=== PATIENT | female | born 1955 | race Caucasian/White ===

== ENCOUNTER 2020-07-13 07:36 | Outpatient (CLI) | payer MEDICARE, OTHER, SELFPAY ==
--- NOTE | 2020-07-13 08:57 | ECG_ITS ---
Measurements Intervals [place] Rate: 69 P: 97 DC: 170 QRS: -8 QRSD: 100 T: 93 QT: 385 QTc: 414 Interpretive Statements SINUS RHYTHM ANTEROSEPTAL INFARCT, AGE INDETERMINATE BORDERLINE ST-T WAVE ABNORMALITY- HIGH LATERAL LEADS BASELINE ARTIFACT- I, II, III, AVR, AVL, AVF ABNORMAL ECG Electronically Signed On 07-13-2020 9:34:59 CDT by Edinson Obando D.O.
[2020-07-13 09:32] LABS: Basophils Percent Auto 0.6 % (0.2-1.2); Eosinophils Absolute Auto 0.1 K/mm3 (0-0.3); Eosinophils Percent Auto 2.1 % (0-4.4); Hematocrit 41.3 % (37.0-47.0); Hemoglobin 13.6 g/dL (12.0-15.0); Immature Granulocyte Absolute 0.02 K/mm3 (0.00-0.031); Immature Granulocyte Percent A 0.4 % (0-0.5); Lymphocytes Absolute Auto 1.49 K/mm3 (0.9-3.2); Lymphocytes Percent Auto 28.3 % (18.3-44.2); Mean Corpuscular HGB Conc 32.9 g/dl (32-36); Mean Corpuscular Hemoglobin 30.8 pg (26-34); Mean Corpuscular Volume 93.7 fl (80-100); Mean Platelet Volume 9.7 fl (7.4-10.4); Monocytes Absolute Auto 0.5 K/mm3 (0.1-0.6); Monocytes Percent Auto 9.3 % (2.6-8.5); Neutrophils Absolute Auto 3.1 K/mm3 (1.3-6.7); Neutrophils Percent Auto 59.3 % (45.5-73.1); Platelet Count Result 294 k/mm3 (150-375); Red Blood Count 4.41 M/mm3 (4.2-5.4); Red Cell Distribution Width 13.1 % (11.5-14.5); White Blood Count 5.3 K/mm3 (4.5-10.0)
[2020-07-13 09:45] LABS: Alanine Aminotransferase 16 U/L (4-35); Albumin Level 4.3 g/dL (3.5-5.1); Alkaline Phosphatase 63 U/L (38-126); Anion Gap 5 mmol/L (8-16); Aspartate Amino Transferase 20 U/L (14-36); Bilirubin,Total 0.5 mg/dL (0.2-1.3); Blood Urea Nitrogen 18 mg/dL (7-17); Calcium 9.3 mg/dL (8.4-10.2); Carbon Dioxide 34 mmol/L (22-30); Chloride 99 mmol/L (98-107); Estimated Glomerular Filt Rate > 60; Glucose 101 mg/dL (65-105); Potassium 3.9 mmol/L (3.4-5.0); Sodium 138 mmol/L (137-145)
[2020-07-13 09:46] LABS: Partial Thromboplastin Time 27.2 SECONDS (22.3-36.8); Prothrombin Time 12.8 Seconds (11.1-14.7)
== END 2020-07-13 07:37 | disposition home or self-care (01) ==
LOC: ANHSURGERY 07:42
PROVIDERS: PCP Family Medicine; Visit Provider Urology
DX: N81.4 Uterovaginal prolapse, unspecified (principal); I48.0 Paroxysmal atrial fibrillation; Z01.818 Encounter for other preprocedural examination; R94.31 Abnormal electrocardiogram [ECG] [EKG]
CPT/HCPCS: 36415; 80053; 85025; 85610; 85730; 86850; 86900; 86901; 87086; 93005

== ENCOUNTER 2020-07-17 03:42 | Outpatient (CLI) | payer MEDICARE, OTHER, SELFPAY ==
[2020-07-17 17:45] LABS: SARS-CoV-2 RNA PCR Negative
== END 2020-07-17 03:43 | disposition home or self-care (01) ==
LOC: ANHCOVIDDT 03:42
PROVIDERS: PCP Family Medicine; Visit Provider Urology
DX: Z01.812 Encounter for preprocedural laboratory examination (principal); Z20.828 Contact with and (suspected) exposure to other viral communicable diseases
CPT/HCPCS: 87635; C9803; U0003

== ENCOUNTER 2020-07-20 01:05 | Day surgery (SDC) | payer MEDICARE, OTHER, SELFPAY ==
[2020-07-13 07:54] VITALS: BMI 29.4
[2020-07-13 09:00] VITALS: BP 128/75; PULSE 63; RESP 16; TEMP 36.7; O2SAT 99
--- NOTE | 2020-07-18 07:41 | PM.IMHP ---
H&P: HPI History of Present Illness Date/Time: 07/18/20 07:41 Chief complaint: uterine prolapse, stress incontinence Narrative: Josefa Beckford is a 65 year old female with POP and ADA Review of Systems Review of Systems: All systems reviewed & are unremarkable except as noted in HPI and below PMFSH Past Medical History Medical History (Updated 07/18/20 @ 07:44 by Cresencio Sanchez MD) Chronic anxiety Chronic depression Chronic low back pain without sciatica Fuchs' corneal dystrophy Family History Family History (Updated 03/27/19 @ 14:18 by DOCTOR UNKNOWN) Mother Diabetes mellitus, Onset Age: 81 Family history of cardiovascular disease Cerebrovascular accident, Onset Age: 81 Family history of chronic obstructive pulmonary disease Family history of atrial fibrillation Father Family history of suicide, Onset Age: 30 Grandparent Cerebrovascular accident, Onset Age: 72 Social History Social History Smoking packs per day: 2 Smoking cigarettes per day: 40.0 Years smoked: 15 Smoking pack-years: 30.00 Smoking status: Former smoker Tobacco type: cigarettes Smoking end date: 10/04/09 Alcohol intake: never Spiritual care concerns: No Meds Home Medications and Allergies Home Medications Medication Instructions Recorded Confirmed Type aspirin 325 mg tablet 325 mg PO DAILY 08/21/19 07/13/20 History magnesium oxide 400 mg PO DAILY 08/21/19 07/13/20 History prednisolone acetate 1 % eye 1 drop EACH EYE HS 08/21/19 07/13/20 History drops,suspension carvedilol 3.125 mg tablet 3.125 mg PO Q12H #120 tablet 02/26/20 07/13/20 Rx multivitamin,[id number] 1 tablet PO DAILY 07/13/20 07/13/20 History [Complete Multivitamin] Allergies Allergy/AdvReac Type Severity Reaction Status Date / Time Sulfa (Sulfonamide Allergy Unknown Hives Verified 07/13/20 07:58 Antibiotics) tetracycline Allergy Unknown Hives Verified 07/13/20 07:58 Exam Const: General: cooperative and healthy appearing HENMT: Head: normal to inspection General nose exam: Normal nares present Face and sinus: normal facial exam Mouth: Yes Normal oral and palatal mucosa present Eyes: General: appearance normal, both eyes and all related structures Neck: Neck: full ROM Resp: Effort & Inspection: normal respiratory effort and able to speak in complete sentences : Other: anterior +4, apex +4 Skin: General skin exam: normal color Extrem: General: normal to inspection Assessment and Plan Assessment and plan (1) Uterine prolapse: Code(s): N81.4 - Uterovaginal prolapse, unspecified Status: Acute Assessment and Plan: robotic sacral colpopexy (2) ADA (stress urinary incontinence, female): Code(s): N39.3 - Stress incontinence (female) (male) Status: Acute Assessment and Plan: urethral sling
[2020-07-20] VITALS (18 sets, daily range): BP systolic 110–137; BP diastolic 65–89; PULSE 50–110; RESP 12–20; TEMP 36.2–37.6; O2SAT 92–100
[2020-07-20] MEDS: LACTATED RINGERS 1,000 ML 30 ML IV CONT ×2 (06:58→10:33)
--- NOTE | 2020-07-20 07:12 | WPDANESEPPF ---
Anes - Initial Pre Proc Eval Procedure: Operation Date: 07/20/20 07:30 Proposed Procedures p Robotic Sacrocolpopexy, Possible Urethral Sling - Cresencio Sanchez MD s Robotic Assisted Laparoscopic Supracervical Hysterectomy, Bilateral Salpingo-Oophorectomy - Mike Mancini MD Date/Time: 07/20/20 07:12 Surgeon: Cresencio Sanchez MD Pre Op Diagnosis: uterine prolapse, stress incontinence Patient Data Age: 65 Gender: F Height: 1.71 m Weight: 86.6 kg Last Vital Signs Temp 36.2 C L 07/20/20 06:48 Pulse 82 07/20/20 06:48 Resp 20 07/20/20 06:48 BP 125/69 07/20/20 06:48 Pulse Ox 99 07/20/20 06:48 Allergies Allergy/AdvReac Type Severity Reaction Status Date / Time Sulfa (Sulfonamide Allergy Unknown Hives Verified 07/20/20 06:20 Antibiotics) tetracycline Allergy Unknown Hives Verified 07/20/20 06:20 Home Medications Medication Instructions Recorded Confirmed Type aspirin 325 mg tablet 325 mg PO DAILY 08/21/19 07/20/20 History magnesium oxide 400 mg PO DAILY 08/21/19 07/20/20 History prednisolone acetate 1 % eye 1 drop EACH EYE HS 08/21/19 07/20/20 History drops,suspension carvedilol 3.125 mg tablet 3.125 mg PO Q12H #120 tablet 02/26/20 07/20/20 Rx multivitamin,[id number]-lsnz-[id number] 1 tablet PO DAILY 07/13/20 07/20/20 History [Complete Multivitamin] ECG: Date of Service: 07/13/20 Procedure(s): CA 12 lead EKG Accession Number(s): [id number] cc: ~ Measurements Intervals [place] Rate: 69 P: 97 SC: 170 QRS: -8 QRSD: 100 T: 93 QT: 385 QTc: 414 Interpretive Statements SINUS RHYTHM ANTEROSEPTAL INFARCT, AGE INDETERMINATE BORDERLINE ST-T WAVE ABNORMALITY- HIGH LATERAL LEADS BASELINE ARTIFACT- I, II, III, AVR, AVL, AVF ABNORMAL ECG Electronically Signed On 07-13-2020 9:34:59 CDT by Edinson Obando D.O. Dictated By: Edinson Obando DO 07/13/20 0932 Patient hx anesthesia problems: none Family hx anesthesia problems: none PMFSH Past Medical History Medical History (Updated 07/20/20 @ 07:20 by Gee Parada MD) Chronic anxiety Chronic depression Chronic low back pain without sciatica Essential (primary) hypertension Fuchs' corneal dystrophy Overweight (BMI 25.0-29.9) Paroxysmal atrial fibrillation History of atrial fibrillation currently asymptomatic. She sees the loss prevention representative every 6 months. Uterine prolapse Family History Family History (Updated 03/27/19 @ 14:18 by DOCTOR UNKNOWN) Mother Diabetes mellitus, Onset Age: 81 Family history of cardiovascular disease Cerebrovascular accident, Onset Age: 81 Family history of chronic obstructive pulmonary disease Family history of atrial fibrillation Father Family history of suicide, Onset Age: 30 Grandparent Cerebrovascular accident, Onset Age: 72 Social History Social History Smoking packs per day: 2 Smoking cigarettes per day: 40.0 Years smoked: 15 Smoking pack-years: 30.00 Smoking status: Former smoker Tobacco type: cigarettes Smoking end date: 10/04/09 Alcohol intake: never Living arrangements: alone Spiritual care concerns: No Anes - Eval Final PreProcedure Day of Procedure 07/20/20 07:12 Patient weight: overweight Heart: regular rate and rhythm Lungs: clear to auscultation and normal air movement Airway: Mallampati scale class II Neurological: alert and oriented Last oral intake: >/= 8 hours ASA classification: III Emergent: no Anesthetic plan: proceed Anesthesia type and monitoring: general ETT Informed Consent: The patient's anesthetic plan and its attendant risks and benefits were discussed with the patient/family/POA. Questions were solicited a
--- NOTE | 2020-07-20 07:14 | PM.IMHP ---
H&P: HPI History of Present Illness Date/Time: 07/20/20 07:14 Chief complaint: uterine prolapse, stress incontinence Narrative: Josefa Beckford is a 65 year old female 003 female presents with longstanding history of pelvic pressure fullness of feeling as though her uterus is dropping out . Also a significant problem with stress urinary incontinence for which she has seen Dr. Sanchez. Presents today for trauma robotic hysterectomy with BSO to be followed by urologic procedure with Dr. Sanchez. Review of Systems Review of Systems: All systems reviewed & are unremarkable except as noted in HPI and below PMFSH Past Medical History Medical History Chronic anxiety Chronic depression Chronic low back pain without sciatica Fuchs' corneal dystrophy Family History Family History Mother Diabetes mellitus, Onset Age: 81 Family history of cardiovascular disease Cerebrovascular accident, Onset Age: 81 Family history of chronic obstructive pulmonary disease Family history of atrial fibrillation Father Family history of suicide, Onset Age: 30 Grandparent Cerebrovascular accident, Onset Age: 72 Social History Social History Smoking packs per day: 2 Smoking cigarettes per day: 40.0 Years smoked: 15 Smoking pack-years: 30.00 Smoking status: Former smoker Tobacco type: cigarettes Smoking end date: 10/04/09 Alcohol intake: never Living arrangements: alone Spiritual care concerns: No Meds Home Medications and Allergies Home Medications Medication Instructions Recorded Confirmed Type aspirin 325 mg tablet 325 mg PO DAILY 08/21/19 07/20/20 History magnesium oxide 400 mg PO DAILY 08/21/19 07/20/20 History prednisolone acetate 1 % eye 1 drop EACH EYE HS 08/21/19 07/20/20 History drops,suspension carvedilol 3.125 mg tablet 3.125 mg PO Q12H #120 tablet 02/26/20 07/20/20 Rx multivitamin,[id number]-[id number] 1 tablet PO DAILY 07/13/20 07/20/20 History [Complete Multivitamin] Allergies Allergy/AdvReac Type Severity Reaction Status Date / Time Sulfa (Sulfonamide Allergy Unknown Hives Verified 07/20/20 06:20 Antibiotics) tetracycline Allergy Unknown Hives Verified 07/20/20 06:20 Vital Signs Vital Signs - 24 hr 07/20/20 06:48 Temperature 36.2 C L Pulse Rate 82 Respiratory Rate 20 Blood Pressure 125/69 Pulse Oximetry 99 Exam Const: General: cooperative Resp: Effort & Inspection: normal respiratory effort Cardio: Rate: regular rate Rhythm: regular rhythm GI: Inspection: normal to inspection : External Female Exam: normal external appearance Speculum Exam - Vagina: normal appearance of the vagina Speculum Exam - Cervix: normal appearance of the cervix Bimanual exam- vagina & uterus: normal bimanual exam and Uterus displaced Bimanual Exam- Adnexa, other: normal adnexae Assessment and Plan Assessment and plan (1) Uterine prolapse: Code(s): N81.4 - Uterovaginal prolapse, unspecified Status: Acute Additional Plan 1. Proceed with robotic assisted supracervical hysterectomy with bilateral salpingo oophorectomy.
--- NOTE | 2020-07-20 07:17 | WPDHPUPDATE1 ---
History and Physical Update Update Date/Time: 07/20/20 07:17 History and Physical has been reviewed, including an updated exam of the patient. There are NO changes in the patient's condition. Risks, benefits, and alternatives have been discussed and questions answered. Patient agrees to proceed with procedure.
[2020-07-20] MEDS: ACETAMINOPHEN 500 MG TABLET 1000 MG PO (07:26)
--- NOTE | 2020-07-20 07:27 | SUR.PREOP ---
per Dr. Sanchez give patient PO tylenol pre-op but do not administer 15mg IV toradol
--- NOTE | 2020-07-20 07:30 | WPDHPUPDATE1 ---
History and Physical Update Update Date/Time: 07/20/20 07:30 History and Physical has been reviewed, including an updated exam of the patient. There are NO changes in the patient's condition. Risks, benefits, and alternatives have been discussed and questions answered. Patient agrees to proceed with procedure.
[2020-07-20] MEDS: ceFAZolin 2 GM/D5W 50 ML 2 GM/50 ML BAG IVPB (07:34)
[2020-07-20] MEDS: metroNIDAZOLE 500 MG/ISO 100ML 500 MG/100 ML BAG 100 MG IVPB ×2 (07:44→16:50)
[2020-07-20] MEDS: BUPIVACAINE/EPINEPHRINE 0.25% 50 ML VIAL 30 ML INFILTRATE (08:27)
--- NOTE | 2020-07-20 08:42 | PM.OP ---
Procedure Note - Brief Procedure Note - Brief Date of procedure: 07/20/20 Pre-op diagnosis: uterine prolapse, stress incontinence Post-op diagnosis: same Procedure performed: 1. Robotic assisted supracervical hysterectomy with bilateral salpingo oophorectomy. Description of procedure: Patient was prepped and draped usual manner for this procedure. Dr. Sanchez placed all the trocars under direct visualization. Once the instruments were placed the pelvis was evaluated and did reveal small uterus with normal tubes and ovaries there did appear also to be some minimal amount of endometriosis in the cul-de-sac. The infundibulopelvic ligaments were cauterized and cut to remove move the vasculature from the ovaries and then the round ligament was cauterized and cut. Bladder flap was dissected without difficulty. The posterior leaf of broad ligament was incised as well. Uterine vessels were skeletonized cauterized and cut. The cervix was then amputated from the uterus without difficulty. Uterus was placed in Endo-Catch bag. At this point Dr. Sanchezk into the room for his portion of the procedure Anesthesia: GETA Surgeon: Mike Mancini MD Estimated blood loss (mL): 10 Drains: No Packing: No Pathology: yes Complications: No immediate complications Condition: stable Disposition: PACU Findings: 1. Uterus small without abnormality. 2. Tubes and ovaries Without abnormality. 3. Cul-de-sac endometriosis.
--- NOTE | 2020-07-20 08:46 | PM.OP ---
Procedure Note - Brief Procedure Note - Brief Date of procedure: 07/22/20 Pre-op diagnosis: uterine prolapse, stress incontinence Surgeon: Mike Mancini MD
[2020-07-20] MEDS: KCL 20 MEQ/D5/0.45% SOD CHL 1,000 ML 100 ML IV CONT (11:59)
--- NOTE | 2020-07-20 14:03 | OBPPTRN ---
1138 Patient transferred to room #279 via bed. Oriented to unit, room, information board. Patient verbalizes understanding.
--- NOTE | 2020-07-20 14:10 | PM.PROC ---
Procedure Note - Detailed Date of procedure: 07/20/20 Pre-op diagnosis: uterine prolapse, stress incontinence Uterine prolapse Female perineal laxity Stress urinary incontinence Post-op diagnosis: same Procedure performed: Robotic assisted laparoscopic sacral colpopexy Perineoplasty Mid urethral sling Cystoscopy Description of procedure: Anesthesia: General She understood the risks of bleeding, infection, damage to surrounding organs, bowel injury, bowel obstruction, recurrence of prolapse, persistent or recurrent stress incontinence, mesh related complications including exposure and extrusion, diskitis, postoperative voiding dysfunction including incontinence and retention, hip and leg pain, dyspareunia, and she agrees to proceed. She was correctly identified and informed consent was obtained. She was brought to the operating room. She was given general anesthesia. She was placed in the dorsal lithotomy position. All pressure points were padded. She was given appropriate perioperative antibiotics. Time-out performed. I anesthetized the skin 3 fingerbreadths cephalad to the umbilicus. I incised the skin. I dissected down to locate the fascia. I grasped the fascia with Hang clamps. I entered the fascia sharply. I placed Vicryl sutures for later fascial closure. I placed a midline trocar. Under direct vision 2 additional trocars were placed on the right and left upper quadrant. She was placed in steep Trendelenburg and the robot was docked. Her configurator performed the portion of the procedure and left the specimen and a sac which was extracted. I then sat at the console. With the Sizer in the vagina I created a plane on the anterior and posterior vaginal wall. This was done for several cm taking great care not to injure the vagina, bladder, or rectum. I introduced the mesh into the abdomen. I sewed the anterior leaflet of mesh on the anterior vaginal wall and posterior leaf of the mesh on the posterior vaginal wall with several [place] sutures taking great care not to go through and through. I then reflected the colon laterally. I opened up the posterior peritoneum over the sacral promontory. I carried this into the cul-de-sac. I kept the ureters lateral. I freed up the edges. I located the anterior longitudinal ligament of the sacrum. I tensioned the mesh appropriately. I did a vaginal exam to ensure prolapse reduction without undue tension. I then sewed the proximal leaflet of mesh onto the ligament with 3 sutures of 2 0 [place]. Next the mass was meticulously retroperitonealized with a running 2 0 Monocryl suture. I allowed the colon to go back into its normal anatomic location. There is no signs of any impingement or stricturing. The abdomen was exited. Fascia was closed. Skin was closed with Monocryl and glue. She was repositioned and prepped for perineal surgery. I turned my attention towards the urethral sling. I marked out the thigh incisions. I anesthetize the skin and made those incisions. I anesthetized the anterior vaginal wall over the mid urethra. I made a 1 cm incision. I dissected out laterally taking great care not to injure the urethra or the vaginal wall. I next passed the helical trocars to 1st on the left and then on the right. This was done from the thigh incision towards the vaginal incision. The sling was connected to the trocars and brought out through the thigh incision. I tensioned the sling appropriately. I cut and removed the plastic sheaths. I then closed the incision with 2 0 Vicryl. She had quite a bit of perineal laxity. I malka out a arsen-shaped area of skin in the perineum. I anesthetized the skin. I removed this area of skin sharply. I then performed a perineoplasty with 0 Vicryl suture. I used a 2 0 Vicryl suture to close mucosa to mucosa. She had excellent perineal support without undue narrowing of the vagina. I then performed cystoscopy. The bladder is examined. There was
[2020-07-20] MEDS: MORPHINE SULFATE (*CRX) 2 MG/ML INJ IV PUSH (15:35)
[2020-07-20] MEDS: carvediloL 3.125 MG TABLET PO (18:42)
[2020-07-20] MEDS: DOCUSATE SODIUM 100 MG CAPSULE PO (18:43)
[2020-07-20] MEDS: KETOROLAC 15 MG/ML VIAL (*BKC) IV PUSH (18:43)
[2020-07-21] MEDS: metroNIDAZOLE 500 MG/ISO 100ML 500 MG/100 ML BAG 100 MG IVPB (00:27)
[2020-07-21] MEDS: KCL 20 MEQ/D5/0.45% SOD CHL 1,000 ML 100 ML IV CONT (01:54)
[2020-07-21] MEDS: KETOROLAC 15 MG/ML VIAL (*BKC) IV PUSH (04:32)
[2020-07-21 04:35] VITALS: BP 102/58; PULSE 63; RESP 16; TEMP 36.7; O2SAT 96
--- NOTE | 2020-07-21 07:09 | WPDANESPN ---
Anes - Prog Note Post-Op Date/Time: 07/21/20 07:09 Cardiovascular status: normal Respiratory status: normal Airway patency: baseline Mental status: baseline Post-Op hydration status: normal Vital Signs: Last Vital Signs Temp 36.7 C 07/21/20 04:35 Pulse 63 07/21/20 04:35 Resp 16 07/21/20 04:35 BP 102/58 L 07/21/20 04:35 Pulse Ox 96 07/21/20 04:35 Pain Score (VAS): 10/04 I/O: Intake & Output 07/20/20 07/20/20 07/21/20 15:59 23:59 07:59 Intake Total 610 1400 500 Output Total 205 400 550 Balance 405 1000 -50 Post-procedural complaints: none Patient Feedback: Patient satisfied with anesthetic care.
[2020-07-21 07:40] VITALS: BP 97/61; PULSE 72; RESP 18; TEMP 36.6; O2SAT 96
[2020-07-21 08:27] VITALS: PULSE 80
[2020-07-21] MEDS: carvediloL 3.125 MG TABLET PO (08:27)
[2020-07-21] MEDS: ENOXAPARIN 30 MG/0.3 ML SYRINGE SUB-Q (08:28)
[2020-07-21] MEDS: DOCUSATE SODIUM 100 MG CAPSULE PO (08:28)
--- NOTE | 2020-07-21 08:54 | WPDUROPN2 ---
Progress Note: A&P Assessment and Plan (1) Uterine prolapse: Code(s): N81.4 - Uterovaginal prolapse, unspecified Status: Acute Assessment and Plan: ok to discharge home today after last antibiotic dose and after she is able to urinate. Patient doing very well post operatively. She is tolerating diet and pain well. (2) ADA (stress urinary incontinence, female): Code(s): N39.3 - Stress incontinence (female) (male) Status: Acute Subjective Subjective Date/Time Seen: 07/21/20 08:54 POD #1 RALSC, Perineoplasty, mid urethral sling and cystoscopy Review of Systems Cardiovascular: Cardiovascular: Denies chest pain Respiratory: Respiratory: Reports no additional respiratory complaints Gastrointestinal: Gastrointestinal: Reports abdominal pain (at incisions only), Denies nausea and Denies vomiting Genitourinary: Genitourinary: Denies hematuria Exam Resp: Effort & Inspection: normal respiratory effort Cardio: Rate: regular rate GI: Inspection: incision (well approximated, no drainage, edema or erythema present.) GI Palp: Yes Soft to palpation and Yes Tenderness to palpation present (GI) Extrem: General: no edema Objective Data Vital Signs Vital Signs: Vital Signs - 24 hr 07/20/20 10:33 07/20/20 10:50 07/20/20 10:55 Temperature 97.4 F L Pulse Rate 72 81 91 Respiratory Rate 14 20 20 Blood Pressure 122/71 132/74 134/81 Pulse Oximetry 99 100 99 07/20/20 11:05 07/20/20 11:20 07/20/20 11:36 Temperature 97.8 F Pulse Rate 83 67 75 Respiratory Rate 12 17 16 Blood Pressure 112/86 115/78 110/74 Pulse Oximetry 97 92 98 07/20/20 11:45 07/20/20 12:00 07/20/20 12:30 Temperature Pulse Rate 89 82 50 L Respiratory Rate 16 16 16 Blood Pressure 119/72 114/82 130/77 Pulse Oximetry 98 98 98 07/20/20 13:00 07/20/20 14:00 07/20/20 15:00 Temperature 99.6 F Pulse Rate 76 109 H 86 Respiratory Rate 16 16 18 Blood Pressure 122/75 126/80 137/79 Pulse Oximetry 95 99 96 07/20/20 15:35 07/20/20 18:30 07/20/20 18:42 Temperature 98.0 F Pulse Rate 94 110 H 110 H Respiratory Rate 16 Blood Pressure 113/65 135/89 Pulse Oximetry 93 95 07/20/20 20:00 07/20/20 23:20 07/21/20 04:35 Temperature 98.9 F 98.3 F 98.1 F Pulse Rate 100 84 63 Respiratory Rate 16 16 16 Blood Pressure 113/65 115/72 102/58 L Pulse Oximetry 95 96 96 07/21/20 08:27 Temperature Pulse Rate 80 Respiratory Rate Blood Pressure Pulse Oximetry Intake/Output Intake/Output: Intake & Output 07/18/20 07/19/20 07/20/20 07/21/20 23:59 23:59 23:59 23:59 Intake Total 2060 500 Output Total 605 550 Balance 1455 -50 Meds/Results Medications: Active Medications Generic Name Dose Route Start Last Admin Trade Name Freq PRN Reason Stop Dose Admin Acetaminophen 650 mg 07/20/20 11:28 Acetaminophen 325 Mg Tablet PO Q4H PRN Mild Pain (1-3) or Fever Hydrocodone Bitart/Acetaminophen 1 tab 07/20/20 11:28 Hydrocodone/Acetaminophen (*Crx) 5-325 Mg Tablet PO Q4H PRN Pain Rated 4-5 Carvedilol 3.125 mg 07/20/20 18:00 07/21/20 08:27 Carvedilol 3.125 Mg Tablet PO 3.125 mg Q12H DAPHNE Administration Cephalexin HCl 500 mg 07/21/20 13:00 Cephalexin 500 Mg Capsule PO QID DAPHNE Diphenhydramine HCl 25 mg 07/20/20 11:28 Diphenhydramine Hcl Inj 50 Mg/Ml Vial IV PUSH Q6H PRN Itching Docusate Sodium 100 mg 07/20/20 11:28 07/21/20 08:28 Docusate Sodium 100 Mg Capsule PO 100 mg DAILY DAPHNE Administration Enoxaparin Sodium 30 mg 07/21/20 09:00 07/21/20 08:28 Enoxaparin 30 Mg/0.3 Ml Syringe SUB-Q 30 mg DAILY DAPHNE Administration Potassium Chloride/Dextrose/Sod Cl 1,000 mls @ 100 mls/hr 07/20/20 11:28 07/21/20 01:54 Kcl 20 Meq/D5/0.45% Sod Chl IV CONT 100 mls/hr .Q10H DAPHNE Administration Metronidazole 500 mg in 100 mls @ 100 mls/hr 07/20/20 16:00 07/21/20 00:27 Flagyl 500 Mg/Iso Soln 100 Ml IVPB 100 ml
[2020-07-21] MEDS: ACETAMINOPHEN 325 MG TABLET 650 MG PO (11:55)
== END 2020-07-21 13:33 | disposition home or self-care (01) ==
LOC: ANHSURGERY 08:31 → ANHOB2 11:30
PROVIDERS: Obstetrics & Gynecology; PCP Family Medicine; Visit Provider Urology
PROC: (CPT 57425; principal; 2020-07-20 07:30)
PROC: 0UT94ZZ Resection of Uterus, Percutaneous Endoscopic Approach (ICD-10-PCS; CPT 57425; 2020-07-20 07:30)
DX: N81.4 Uterovaginal prolapse, unspecified (principal); N39.3 Stress incontinence (female) (male); D25.9 Leiomyoma of uterus, unspecified; N83.8 Other noninflammatory disorders of ovary, fallopian tube and broad ligament; F41.8 Other specified anxiety disorders; H18.519 Endothelial corneal dystrophy, unspecified eye; I48.0 Paroxysmal atrial fibrillation; Z87.891 Personal history of nicotine dependence; Z79.82 Long term (current) use of aspirin
CPT/HCPCS: 57425; 57288; 58542; S2900; 88307; 99199; A9270; C1771; C1781; J0690; J1100; J1170; J1650; J1885; J2250; J2270; J2405; J2704; J2710; J3010; J3480; J7030; J7120

== ENCOUNTER → 2021-04-06 00:39 | Outpatient (CLI) | payer MEDICARE, OTHER, SELFPAY ==
[2021-04-06 17:38] LABS: SARS-CoV-2 RNA PCR Negative
== END ==
PROVIDERS: PCP Family Medicine; Visit Provider Internal Medicine Gastroenterology
DX: Z01.812 Encounter for preprocedural laboratory examination (principal); Z20.822 Contact with and (suspected) exposure to COVID-19
CPT/HCPCS: C9803; U0003; U0005

== ENCOUNTER 2021-04-09 01:06 | Day surgery (SDC) | payer MEDICARE, OTHER, SELFPAY ==
[2021-03-30 08:30] VITALS: BMI 31.1
[2021-04-09 10:08] VITALS: BP 110/56; PULSE 103; RESP 16; TEMP 36.2; O2SAT 99; BMI 30.4
[2021-04-09] MEDS: LACTATED RINGERS 1,000 ML 150 ML IV CONT (10:13)
--- NOTE | 2021-04-09 10:33 | WPDANESEPPF ---
Anes - Initial Pre Proc Eval Procedure: Operation Date: 04/09/21 11:00 Proposed Procedures p Screening Colonoscopy - Alan Orourke MD Date/Time: 04/09/21 10:33 Surgeon: Alan Orourke MD Pre Op Diagnosis: neoplasm screening Patient Data Age: 66 Gender: F Height: 1.7 m Weight: 88 kg Last Vital Signs Temp 36.2 C L 04/09/21 10:08 Pulse 103 H 04/09/21 10:08 Resp 16 04/09/21 10:08 BP 110/56 L 04/09/21 10:08 Pulse Ox 99 04/09/21 10:08 Allergies Allergy/AdvReac Type Severity Reaction Status Date / Time Sulfa (Sulfonamide Allergy Unknown Hives Verified 04/09/21 10:06 Antibiotics) tetracycline Allergy Unknown Hives Verified 04/09/21 10:06 Home Medications Medication Instructions Recorded Confirmed Type aspirin 325 mg tablet 325 mg PO DAILY 08/21/19 04/09/21 History magnesium oxide 400 mg PO DAILY 08/21/19 04/09/21 History prednisolone acetate 1 % eye 1 drop EACH EYE HS 08/21/19 04/09/21 History drops,suspension Complete Multivitamin 1 tablet PO DAILY 07/13/20 04/09/21 History alprazolam 0.25 mg tablet 0.25 mg PO TID PRN #30 tablet 08/06/20 04/09/21 Rx carvedilol 3.125 mg tablet 3.125 mg PO Q12H #120 tablet 10/26/20 04/09/21 Rx acetaminophen 650 mg PO Q6H PRN 03/30/21 04/09/21 History doxycycline hyclate 50 mg PO BID 03/30/21 04/09/21 History Patient hx anesthesia problems: none Family hx anesthesia problems: none PMFSH Past Medical History Medical History Adult BMI 30.0-30.9 kg/sq m Arthritis of carpometacarpal (CMC) joint of both thumbs BMI 29.0-29.9,adult Chronic anxiety Chronic depression Chronic low back pain without sciatica Chronic pain of both thumbs Colon cancer screening Essential (primary) hypertension Fuchs' corneal dystrophy Hypertension Overweight (BMI 25.0-29.9) Paroxysmal atrial fibrillation History of atrial fibrillation currently asymptomatic. She sees the insole bottom filler every 6 months. Uterine prolapse Webbing of toes Welcome to Medicare preventive visit Surgical History Surgical History H/O: hysterectomy History of heart surgery Family History Family History Mother Diabetes mellitus, Onset Age: 81 Family history of cardiovascular disease Cerebrovascular accident, Onset Age: 81 Family history of chronic obstructive pulmonary disease Family history of atrial fibrillation Father Family history of suicide, Onset Age: 30 Grandparent Cerebrovascular accident, Onset Age: 72 Social History Social History Smoking packs per day: 2 Smoking cigarettes per day: 40.0 Years smoked: 15 Smoking pack-years: 30.00 Smoking status: Former smoker Tobacco type: cigarettes Smoking end date: 10/04/09 Alcohol intake: never Substance use: never Living arrangements: alone Gender identity (if verbalized by the patient): Female Spiritual care concerns: No Anes - Eval Final PreProcedure Day of Procedure 04/09/21 10:33 Patient weight: obese Heart: regular rate and rhythm Lungs: clear to auscultation Airway: Mallampati scale class II Neurological: alert and oriented Last oral intake: >/= 8 hours ASA classification: III Emergent: no Anesthetic plan: proceed Anesthesia type and monitoring: general GIVS and standard monitoring Informed Consent: The patient's anesthetic plan and its attendant risks and benefits were discussed with the patient/family/POA. Questions were solicited and answers provided to the satisfaction of the patient/family/POA.
--- NOTE | 2021-04-09 12:01 | PM.HPGS ---
History of Present Illness History of Present Illness Consent: Risks, benefits, and alternatives have been discussed and questions answered. Patient agrees to proceed with procedure. Chief complaint: neoplasm screening Narrative: Josefa Beckford is a 66 year old female here for first screening colonoscopy Review of Systems Constitutional: Constitutional: Denies headache(s) and Denies weakness Eyes: Eyes: Denies blurry vision ENT: Reports Normal hearing present, Denies headache(s) and Denies neck pain Cardiovascular: Cardiovascular: Denies chest pain and Denies dyspnea Respiratory: Respiratory: Denies dyspnea Gastrointestinal: Gastrointestinal: Reports no additional gastrointestinal complaints Genitourinary: Genitourinary: Denies dysuria Musculoskeletal: Musculoskeletal: Denies neck pain Integumentary/Breasts: Skin/Breast: Denies dry skin Neurologic: Reports Normal hearing present, Denies headache(s) and Denies weakness Psychiatric: Psychiatric: Denies anxiety Endocrine: Endocrine: Denies change in body appearance Hematologic/Lymphatic: Hematologic/Lymphatic: Denies easy bleeding Allergic/Immunologic: Allergic/Immunologic: Denies urticaria PMF Past Medical History Medical History Adult BMI 30.0-30.9 kg/sq m Arthritis of carpometacarpal (CMC) joint of both thumbs BMI 29.0-29.9,adult Chronic anxiety Chronic depression Chronic low back pain without sciatica Chronic pain of both thumbs Colon cancer screening Essential (primary) hypertension Fuchs' corneal dystrophy Hypertension Overweight (BMI 25.0-29.9) Paroxysmal atrial fibrillation History of atrial fibrillation currently asymptomatic. She sees the toe puncher every 6 months. Uterine prolapse Webbing of toes Welcome to Medicare preventive visit Surgical History Surgical History H/O: hysterectomy History of heart surgery Family History Family History Mother Diabetes mellitus, Onset Age: 81 Family history of cardiovascular disease Cerebrovascular accident, Onset Age: 81 Family history of chronic obstructive pulmonary disease Family history of atrial fibrillation Father Family history of suicide, Onset Age: 30 Grandparent Cerebrovascular accident, Onset Age: 72 Social History Social History Smoking packs per day: 2 Smoking cigarettes per day: 40.0 Years smoked: 15 Smoking pack-years: 30.00 Smoking status: Former smoker Tobacco type: cigarettes Smoking end date: 10/04/09 Alcohol intake: never Substance use: never Living arrangements: alone Gender identity (if verbalized by the patient): Female Spiritual care concerns: No Meds Home Medications and Allergies Home Medications Medication Instructions Recorded Confirmed Type aspirin 325 mg tablet 325 mg PO DAILY 08/21/19 04/09/21 History magnesium oxide 400 mg PO DAILY 08/21/19 04/09/21 History prednisolone acetate 1 % eye 1 drop EACH EYE HS 08/21/19 04/09/21 History drops,suspension Complete Multivitamin 1 tablet PO DAILY 07/13/20 04/09/21 History alprazolam 0.25 mg tablet 0.25 mg PO TID PRN #30 tablet 08/06/20 04/09/21 Rx carvedilol 3.125 mg tablet 3.125 mg PO Q12H #120 tablet 10/26/20 04/09/21 Rx acetaminophen 650 mg PO Q6H PRN 03/30/21 04/09/21 History doxycycline hyclate 50 mg PO BID 03/30/21 04/09/21 History Allergies Allergy/AdvReac Type Severity Reaction Status Date / Time Sulfa (Sulfonamide Allergy Unknown Hives Verified 04/09/21 10:06 Antibiotics) tetracycline Allergy Unknown Hives Verified 04/09/21 10:06 Vital Signs Vital Signs - 24 hr 04/09/21 10:08 Temperature 97.2 F L Pulse Rate 103 H Respiratory Rate 16 Blood Pressure 110/56 L Pulse Oximetry 99 Exam Const:
[2021-04-09 12:20] VITALS: BP 91/57; PULSE 75; RESP 24; O2SAT 98
[2021-04-09 12:30] VITALS: BP 96/62; PULSE 59; RESP 19; O2SAT 100
[2021-04-09 12:40] VITALS: BP 105/70; PULSE 74; RESP 15; O2SAT 100
== END 2021-04-09 12:49 | disposition home or self-care (01) ==
PROVIDERS: PCP Family Medicine; Visit Provider Internal Medicine Gastroenterology
PROC: 0DJD8ZZ Inspection of Lower Intestinal Tract, Via Natural or Artificial Opening Endoscopic (ICD-10-PCS; CPT 45378; principal; 2021-04-09 11:00)
DX: Z12.11 Encounter for screening for malignant neoplasm of colon (principal); K57.30 Diverticulosis of large intestine without perforation or abscess without bleeding; I10 Essential (primary) hypertension; I48.0 Paroxysmal atrial fibrillation; M19.042 Primary osteoarthritis, left hand; M19.041 Primary osteoarthritis, right hand; M54.5 Low back pain; H18.519 Endothelial corneal dystrophy, unspecified eye; E66.3 Overweight; F32.9 Major depressive disorder, single episode, unspecified; F41.9 Anxiety disorder, unspecified; Q70.30 Webbed toes, unspecified foot; Z79.82 Long term (current) use of aspirin; Z90.710 Acquired absence of both cervix and uterus
CPT/HCPCS: G0121; J2704; J7120

== ENCOUNTER 2021-08-17 11:38 | Emergency (ER) | payer MEDICARE, OTHER, SELFPAY ==
[2021-08-17 11:50] VITALS: BP 156/86; PULSE 75; RESP 16; TEMP 37.1; O2SAT 97
--- NOTE | 2021-08-17 12:55 | ED.EXTPRO ---
HPI - Extremity Problem General Chief complaint: Extremity Problem,Nontraumatic Stated complaint: Rt Foot Pain Time Seen by Provider: 08/17/21 12:48 Source: patient and family Mode of arrival: ambulatory Limitations: no limitations History of Present Illness HPI Narrative: Josefa is a 66-year-old female who ambulated into the [facility]. Patient states she has had left heel and foot pain for greater than 1 month. Patient states it did get worse 1 week ago. Patient has been seen by Dr. Almonte who put her on meloxicam. Patient stopped taking the meloxicam due to stomach pain. Patient states she has been wearing hard soled shoes for comfort when walking. Related Data Home Medications Medication Instructions Recorded Confirmed aspirin 325 mg tablet 325 mg PO DAILY 08/21/19 07/15/21 magnesium oxide 400 mg PO DAILY 08/21/19 07/15/21 prednisolone acetate 1 % eye 1 drop EACH EYE HS 08/21/19 07/15/21 drops,suspension Complete Multivitamin 1 tablet PO DAILY 07/13/20 07/15/21 acetaminophen 650 mg PO Q6H PRN 03/30/21 07/15/21 doxycycline hyclate 50 mg capsule 50 mg PO DAILY 07/15/21 07/15/21 Allergies Allergy/AdvReac Type Severity Reaction Status Date / Time Sulfa (Sulfonamide Allergy Unknown Hives Verified 04/09/21 10:06 Antibiotics) tetracycline Allergy Unknown Hives Verified 04/09/21 10:06 Review of Systems Review of Systems: CONSTITUTIONAL: Denies body aches, fever, chills, or sweats. EYES: Denies visual changes, redness, or discharge. ENT: Denies rhinorrhea, congestion, sore throat, or otalgia. CARDIOVASCULAR: Denies chest pain, palpitations, or edema. RESPIRATORY: Denies cough or dyspnea. GASTROINTESTINAL: Denies abdominal pain, nausea, vomiting, or diarrhea. GENITOURINARY: Denies dysuria or hematuria. SKIN: Denies rash, itching, or wounds. MUSCULOSKELETAL: Denies back pain, + left foot pain. NEUROLOGIC: Denies headache, numbness, tingling, or weakness. PSYCH: Denies depression or anxiety. All systems reviewed & are unremarkable except as noted in HPI and below PMFSH Past Medical History Medical History Abnormal fasting glucose Adult BMI 30.0-30.9 kg/sq m Arthritis of carpometacarpal (CMC) joint of both thumbs BMI 29.0-29.9,adult BMI 31.0-31.9,adult Breast cancer screening by mammogram Mammogram negative on 07/01/2021 Chronic anxiety Chronic depression Chronic low back pain without sciatica Chronic pain of both thumbs Colon cancer screening normal colonoscopy with diverticula on 04/09/2021, recheck in 10 years Essential (primary) hypertension Fuchs' corneal dystrophy Hypertension Overweight (BMI 25.0-29.9) Pain in left hand Pain in right hand Paroxysmal atrial fibrillation History of atrial fibrillation currently asymptomatic. She sees the application internship every 6 months. Uterine prolapse Webbing of toes Welcome to Medicare preventive visit (~2006) Surgical History Surgical History H/O: hysterectomy History of heart surgery Family History Family History Mother Diabetes mellitus, Onset Age: 81 Family history of cardiovascular disease Cerebrovascular accident, Onset Age: 81 Family history of chronic obstructive pulmonary disease Family history of atrial fibrillation Father Family history of suicide, Onset Age: 30 Grandparent Cerebrovascular accident, Onset Age: 72 Social History Social History Smoking packs per day: 2 Smoking cigarettes per day: 40.0 Years smoked: 15 Smoking pack-years: 30.00 Smoking status: Former smoker Tobacco type: cigarettes Smoking end date: 10/04/09 Alcohol intake: never Substance use: never Gender identity (if verbalized by the patient): Female Spiritual care concerns: No Comments At time of signature, I have reviewed and agree with n
== END 2021-08-17 13:04 | disposition home or self-care (01) ==
PROVIDERS: Emergency Provider Nurse Practitioner Family; PCP Family Medicine
DX: M79.671 Pain in right foot (principal); I10 Essential (primary) hypertension; H18.519 Endothelial corneal dystrophy, unspecified eye; M18.9 Osteoarthritis of first carpometacarpal joint, unspecified; Z79.82 Long term (current) use of aspirin; Z87.891 Personal history of nicotine dependence
CPT/HCPCS: 99212; G0463

== ENCOUNTER 2021-08-26 15:15 | Outpatient (CLI) | payer MEDICARE, OTHER, SELFPAY ==
[2021-08-26 16:18] LABS: Rheumatoid Factor < 8.6 IU/ML (<12)
[2021-08-26 16:20] LABS: CRP < 0.5 mg/dL (<1.0)
[2021-08-26 16:54] LABS: Erythrocyte Sedimentation Rate 11 mm/hr (0-20)
[2021-08-31 22:59] LABS: HLA B27 Negative (Negative)
== END 2021-08-26 15:16 | disposition home or self-care (01) ==
PROVIDERS: PCP Family Medicine; Visit Provider Podiatrist Foot & Ankle Surgery
DX: M06.9 Rheumatoid arthritis, unspecified (principal); M45.9 Ankylosing spondylitis of unspecified sites in spine; M25.579 Pain in unspecified ankle and joints of unspecified foot; Z51.81 Encounter for therapeutic drug level monitoring; Z79.899 Other long term (current) drug therapy
CPT/HCPCS: 36415; 85652; 86038; 86140; 86430; 86812

== ENCOUNTER 2021-12-02 10:05 | Outpatient (CLI) | payer MEDICARE, OTHER, SELFPAY ==
--- NOTE | ~2021-12-02 | MR_ITS ---
EXAMINATION: MR ankle RT wo con DATE: 12/02/2021 10:47 INDICATION: Peroneus longus rupture, right ankle. TECHNIQUE: Magnetic resonance imaging (MRI) of the right ankle was performed without intravenous cont rast. Sequences included sagittal PD-weighted FS FSE, sagittal PD-weighted FSE, coronal PD-weighted F S FSE, coronal PD-weighted FSE, axial PD-weighted FS FSE, and axial PD-weighted FSE. COMPARISON: None. FINDINGS: Medial ankle ligaments: There are changes of prior sprain of the superficial component of deltoid ligament characterized by i ncreased signal intensity. The deep component of the deltoid ligament is normal. Lateral ankle ligaments: Anterior talofibular ligament, calcaneofibular ligament, posterior talofibular ligament, and anterior and posterior tibiofibular ligaments are normal. Tendons: The anterior and medial ankle tendons and Achilles tendon are normal. There is a complete tear of per oneus longus tendon distal to the lateral malleolus. The tendon gap is approximately 6 cm. There is a longitudinal split tear of peroneus brevis tendon. There is moderate peroneus brevis tendinopathy. T here is common peroneal tenosynovitis. Plantar fascia: There is thickening and increased signal in middle band of plantar fascia, consistent with fasciitis. Bones/other: Bone alignment is normal. There is edema-like marrow signal intensity in cuboid at the tunnel, likely stress reaction. There is mild osteoarthritis of many of the midfoot joints. Fluid: There is a 10 x 3 mm ganglion cyst dorsal to talonavicular joint. There is a ganglion cyst in sinus t arsi that extends medially to abut the skin measuring 3.9 x 1.5 cm. IMPRESSION: 1. Complete tear of peroneus longus tendon with 6 cm gap. 2. Longitudinal split tear of peroneus brevis tendon. 3. Common peroneal tenosynovitis. 4. Plantar fasciitis. 5. Mild polyarticular osteoarthritis. 6. Ganglion cyst dorsal to the talonavicular joint. Ganglion cyst within and medial to sinus tarsi. Reviewed, dictated and finalized at location A. [facility] [employer] IMPRESSION: 1. Complete tear of peroneus longus tendon with 6 cm gap. 2. Longitudinal split tear of peroneus brevis tendon. 3. Common peroneal tenosynovitis. 4. Plantar fasciitis. 5. Mild polyarticular osteoarthritis. 6. Ganglion cyst dorsal to the talonavicular joint. Ganglion cyst within and me dial to sinus tarsi.
== END 2021-12-02 10:06 | disposition home or self-care (01) ==
LOC: ANHIMG 10:07
PROVIDERS: PCP Family Medicine; Visit Provider Podiatrist Foot & Ankle Surgery
DX: M76.71 Peroneal tendinitis, right leg (principal); S96.811A Strain of other specified muscles and tendons at ankle and foot level, right foot, initial encounter; M65.871 Other synovitis and tenosynovitis, right ankle and foot; M72.2 Plantar fascial fibromatosis; M19.071 Primary osteoarthritis, right ankle and foot; M67.471 Ganglion, right ankle and foot
CPT/HCPCS: 73721

== ENCOUNTER 2021-12-10 04:27 | Day surgery (SDC) | payer MEDICARE, OTHER, SELFPAY ==
--- NOTE | 2021-12-06 15:45 | PC.NURSE ---
Report to the Outpatient Waiting Room, entrance under the green pavilion located off [facility], at time _0630 on date _12/10/21 . OR Time: . - You and your visitor will be asked a series of questions to screen for COVID 19 for your protection. - A mask is required within the hospital. Preoperative COVID Testing Requirements: No COVID Test needed if: (proof is required; if not received patient will have Rapid Test prior to entry) - Patient has received COVID Vaccine at least 14 days prior to procedure date or - Patient has positive COVID test result within last 90 days of surgery date. COVID Test needed if above criteria is not met If not COVID vaccinated a COVID test must be conducted within 72 hours of surgery and patient is asked to isolate self from time of testing until procedure. You will go to the [facility] for your COVID testing. The [facility] site is located at the corner of [address] [facility]. You will only be called if COVID results are positive and your surgeon may reschedule your elective surgery date. Patients may have clear liquids (water, carbonated beverages, clear teas, apple juice) until 3 hours prior to surgery with a maximum of 20 ounces. - No food from midnight until time of surgery - Infants may have breast milk until 4 hours before surgery, infant formula 6 hours prior to surgery. - Children will be allowed to drink immediately following surgery. If applicable, please bring a bottle or sippy cup to assist with drinking. Juice, water, soda, and popsicles are readily available. For infants on formula, please bring formula the day of surgery. Pacifiers are allowed. Take the following medications with a SIP of water the morning of surgery: ___ALPRAZOLAM,CARVEDILOL Medications to discontinue per physician ASPIRIN PER DR TOLEDO/REBEKAH. ALL VITAMINS 3 DAYS PRE OP Date to take last dose____3/14/22 Please no make-up, nail mohawk, hairspray, perfume, deodorant, or body powder the day of surgery. No jewelry (including any body piercings) or valuables the day of surgery, leave them at home. Please take a shower or bath the night before, or the morning of, surgery with an antibacterial soap. Wear comfortable, loose fitting clothing. Children are encouraged to wear pajamas. - Jewelry must be removed prior to entering the operating room. Rings and piercings that are not removed may be cut off. - The hospital will not accept responsibility for valuables. - Please leave all valuables, including medications, at home the day of surgery. If you are going home after surgery, a licensed city driver must drive you home. - NO public transportation without another adult. - We recommend that an adult stay with you for 24 hours following discharge. - We also recommend that you do not drive, make important decision, drink alcoholic beverages, or take any drugs that were not prescribed by your health care provider for at least 24 hours after your discharge time. For Pediatric surgeries, we recommend two adults accompany the child home (only one inside the building at this time). One visitor will be allowed to accompany the patient into the hospital. Patients visitor will be instructed to remain with patient at all times or leave the building. We will allow the visitor to come back to the postoperative area when patient is ready. Follow any additional instructions given to you from your surgeon. Telephone instructions given to __PATIENT and asked if any additional questions and then verbalized understanding. Patient advised to call surgeon office or pre surgery nurse liaison [phone] if any additional questions.
[2021-12-06 15:53] VITALS: BMI 32.1
--- NOTE | ~2021-12-10 | XR_ITS ---
EXAMINATION: XR surgery orthopedic DATE: 12/10/2021 10:26 INDICATION: Peroneal repair and second and third Skye shortening metatarsal osteotomies TECHNIQUE: Single fluoroscopic spot image of the right forefoot was obtained during procedure perform ed by Dr. Emery. Radiologist was not present for the imaging or procedure. The amount of fluorosco py time used during this procedure was 0.1 minutes. COMPARISON: None. FINDINGS: Image demonstrates shortening osteotomies at the necks of the second and third metatarsals, with a sc rew fixations. The head of the third metatarsal has been fixed with screws with slight lateral sublux ation resulting in more uniform spacing between the heads of the metatarsals. Small amount of postope rative gas at the second metatarsophalangeal joint space and along the diaphysis of the third metatar tyrese. Remaining joint spaces are normal. No fracture. IMPRESSION: 1. Fluoroscopy utilized during shortening osteotomies at the right second and third metatarsals. Reviewed, dictated and finalized at location A. IMPRESSION: 1. Fluoroscopy utilized during shortening osteotomies at the right second and t hird metatarsals.
--- NOTE | 2021-12-10 07:07 | WPDHPUPDATE1 ---
History and Physical Update Update Date/Time: 12/10/21 07:07 History and Physical has been reviewed, including an updated exam of the patient. There are NO changes in the patient's condition. Risks, benefits, and alternatives have been discussed and questions answered. Patient agrees to proceed with procedure.
--- NOTE | 2021-12-10 07:08 | WPDHPUPDATE1 ---
History and Physical Update Update Date/Time: 12/10/21 07:08 History and Physical has been reviewed, including an updated exam of the patient. There are NO changes in the patient's condition. Risks, benefits, and alternatives have been discussed and questions answered. Patient agrees to proceed with procedure.
[2021-12-10] MEDS: LACTATED RINGERS 1,000 ML 30 ML IV CONT ×2 (07:33→10:44)
--- NOTE | 2021-12-10 07:51 | WPDANESEPPF ---
Anes - Initial Pre Proc Eval Procedure: Operation Date: 12/10/21 08:30 Proposed Procedures p Primary Repair of Peroneal Tendons of Right Ankle, - Jermaine Emery JR, MD s Skye Shortening Second and Third Metatarsal Right Foot with Possible Plantar Plate Repair - Jermaine Emery JR, MD Date/Time: 12/10/21 07:51 Surgeon: Jermaine Emery JR, MD Pre Op Diagnosis: peroneal tendon rupture rt foot,metatarsalgia Patient Data Age: 66 Gender: F Height: 1.7 m Weight: 94 kg Allergies Allergy/AdvReac Type Severity Reaction Status Date / Time Sulfa (Sulfonamide Allergy Unknown Hives Verified 12/10/21 07:01 Antibiotics) tetracycline Allergy Unknown Hives Verified 12/10/21 07:01 Home Medications Medication Instructions Recorded Confirmed Type aspirin 325 mg tablet 325 mg PO DAILY 08/21/19 12/10/21 History magnesium oxide 400 mg PO DAILY 08/21/19 12/10/21 History prednisolone acetate 1 % eye 1 drop EACH EYE HS 08/21/19 12/10/21 History drops,suspension Complete Multivitamin 1 tablet PO DAILY 07/13/20 12/10/21 History acetaminophen 650 mg PO Q6H PRN 03/30/21 12/10/21 History alprazolam 0.25 mg tablet 0.25 mg PO TID PRN #90 tablet 06/10/21 12/10/21 Rx doxycycline hyclate 50 mg capsule 50 mg PO BID 07/15/21 12/10/21 History carvedilol 6.25 mg tablet 6.25 mg PO Q12H 09/14/21 12/10/21 History diclofenac sodium [Voltaren 2 g TOPICAL PRN PRN 12/06/21 12/06/21 History Arthritis Pain] Patient hx anesthesia problems: none Family hx anesthesia problems: none Results Review: All pre-operative results and documents have been reviewed as part of the pre-operative evaluation. [facility] Past Medical History Medical History Abnormal fasting glucose Adult BMI 30.0-30.9 kg/sq m Arthritis of carpometacarpal (CMC) joint of both thumbs BMI 29.0-29.9,adult BMI 31.0-31.9,adult Breast cancer screening by mammogram Mammogram negative on 07/01/2021 Chronic anxiety Chronic depression Chronic low back pain without sciatica Chronic pain of both thumbs Colon cancer screening normal colonoscopy with diverticula on 04/09/2021, recheck in 10 years Essential (primary) hypertension Fuchs' corneal dystrophy Hypersomnia home sleep study ordered by housecleaner floor on 09/02/2021 with no evidence of sleep apnea Hypertension Overweight (BMI 25.0-29.9) Pain in left hand Pain in right hand Paroxysmal atrial fibrillation History of atrial fibrillation currently asymptomatic. She sees the housecleaner floor every 6 months. echocardiogram 08/27/2021 with ejection fraction 65% with trace mitral regurgitation and trace tricuspid regurgitation Uterine prolapse Webbing of toes Welcome to Medicare preventive visit (~2006) Surgical History Surgical History H/O: hysterectomy History of heart surgery Family History Family History Mother Diabetes mellitus, Onset Age: 81 Family history of cardiovascular disease Cerebrovascular accident, Onset Age: 81 Family history of chronic obstructive pulmonary disease Family history of atrial fibrillation Father Family history of suicide, Onset Age: 30 Grandparent Cerebrovascular accident, Onset Age: 72 Social History Social History Smoking packs per day: 2 Smoking cigarettes per day: 40.0 Years smoked: 15 Smoking pack-years: 30.00 Smoking status: Former smoker Tobacco type: cigarettes Smoking end date: 09/25/09 Alcohol intake: never Substance use: never Living arrangements: alone Gender identity (if verbalized by the patient): Female Spiritual care concerns: No Anes - Eval Final PreProcedure Day of Procedure 12/10/21 07:51 Patient weight: obese Heart: regular rate and rhythm Lungs: clear to auscultation Airway: Mallampati scale class II Neurological: alert and oriented Last
[2021-12-10] MEDS: ceFAZolin 2 GM/D5W 50 ML 2 GM/50 ML BAG IVPB (08:33)
[2021-12-10] MEDS: BUPIVACAINE HCL 0.5% PF 30 ML VIAL 20 ML INFILTRATE (09:19)
[2021-12-10 10:44] VITALS: BP 115/78; PULSE 90; RESP 10; TEMP 36.3; O2SAT 99
[2021-12-10 10:49] VITALS: PULSE 86; RESP 18; O2SAT 98
[2021-12-10 11:00] VITALS: BP 107/66; PULSE 75; RESP 10; O2SAT 100
--- NOTE | 2021-12-10 11:05 | SUR.PHASEI ---
Simple mask removed at 1105.
[2021-12-10 11:15] VITALS: BP 116/74; PULSE 72; RESP 10; O2SAT 94
--- NOTE | 2021-12-10 11:21 | W.PM.PROC2 ---
Procedure Note - Detailed Date of Procedure 12/10/21 Pre-op Diagnosis 1. Peroneal tendinopathy right foot and ankle 2. Peroneus longus tendon rupture right ankle 4. 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 Primary repair of peroneus brevis tendon right foot and ankle 2. Anastomosis of peroneus longus tendon to peroneus brevis tendon right foot and ankle 3. Skye shortening 2nd and 3rd metatarsal osteotomies right foot Surgeon Jermaine Emery JR, DPM Anesthesia General and Local Indications 1. Pain and loss of function to the evertors of the right foot and ankle and inability to plantarflex the first ray 2. Lateral deviation of the 2nd and 3rd digits of the right foot with pain to the ball of the foot Findings 1. Longitudinal split tearing of the peroneus brevis tendon 2. Transverse rupture of the peroneus longus tendon at the cuboid notch 3. No plantar plate tear to the 2nd and 3rd metatarsal phalangeal joints Description of Procedure Under mild sedation, the patient was brought in to the operating room, placed on the operating table in the lateral decubitus position. A pneumatic thigh tourniquet was placed about the patient's right thigh. Following general anesthesia, local anesthesia was obtained about the left leg foot utilizing 30 mL of local anesthesia a one to two mix of Exparel 20ccs with 0.5% Marcaine plain 10ccs just inferior and posterior to the neck of the fibula and along the medial ankle to block the tibial and saphenous nerve. The foot was then scrubbed, prepped, and draped in the usual aseptic manner. An Esmarch bandage was then used to exsanguinate the patient's right foot and ankle and the pneumatic thigh tourniquet was then inflated. An incision was made starting 6 cm proximal to the lateral malleolus extending to the cuboid notch and 5th metatarsal base region. The incision was continued deep down through the subcutaneous tissues using sharp and blunt dissection. All bleeders were ligated and cauterized as necessary. I made a full length peroneal tendon sheath incision visualizing both the peroneus longus and brevis tendons in its entirety. I encountered a 6m area of longitudinal split tearing to the peroneus brevis tendon staring distal to the lateral malleolus extending just proximal to the 5th metatarsal base. I resected the amorphous split tearing and retubularized with 4-0 Prolene in simple interrupted suture fashion technique. Next, I inspected the peroneus longus tendon I noticed a complete rupture of the peroneus longus tendon at the cuboid notch. The distal stump was not visualized as it likely retracted distally to the plantar vault of the foot near its plantar attachment to the 1st metatarsal cuneiform joint region. The proximal aspect, two cm, of the peroneus longus tendon was noticed to be amorphous and hypertrophic. This abnormal distal stump was resected and sent for gross and histopathology. The healthy portion of the peroneus longus tendon was able to reach the insertional component of the peroneus brevis tendon when positioned side to side. I incised and opened the anterior aspect of the peroneus longus tendon and wrapped and covered the entire peroneus brevis tendon. Next, I anastomosed the peroneus longus to the brevis tendon with tension and the foot everted and dorsiflexed. I utilied 3-0 PDS and 4-0 Prolene in simple interrupted suture fashion technique to complete the repair. Next, I reapproximated the peroneal sheath covering the anastomosed peroneal tendons with 3-0 Vicryl and the subcutaneous structures were reapproximated and coapted utilizing 4-0 Vicryl. Next, the skin was reapproximated and coapted utilizing 4-0 Monocryl in running subcuticular suture fashion technique. Attention was directed to the dorsal aspect of the 2nd metatarsal head of t
[2021-12-10 11:25] VITALS: BP 136/71; PULSE 57; RESP 16
[2021-12-10 11:55] VITALS: BP 127/80; PULSE 57; RESP 16
== END 2021-12-10 12:21 | disposition home or self-care (01) ==
PROVIDERS: PCP Family Medicine; Visit Provider Podiatrist Foot & Ankle Surgery
PROC: (CPT 27658; principal; 2021-12-10 08:30)
PROC: (CPT 28750; 2021-12-10 08:30)
DX: S93.401A Sprain of unspecified ligament of right ankle, initial encounter (principal); S96.911A Strain of unspecified muscle and tendon at ankle and foot level, right foot, initial encounter; M25.571 Pain in right ankle and joints of right foot; X58.XXXA Exposure to other specified factors, initial encounter; M65.871 Other synovitis and tenosynovitis, right ankle and foot; I10 Essential (primary) hypertension; M19.90 Unspecified osteoarthritis, unspecified site; M06.9 Rheumatoid arthritis, unspecified; Z79.82 Long term (current) use of aspirin; M79.89 Other specified soft tissue disorders; F41.8 Other specified anxiety disorders; I48.0 Paroxysmal atrial fibrillation; H18.519 Endothelial corneal dystrophy, unspecified eye; M18.0 Bilateral primary osteoarthritis of first carpometacarpal joints; M54.50 Low back pain, unspecified; Z87.891 Personal history of nicotine dependence; E66.9 Obesity, unspecified; Z68.32 Body mass index [BMI] 32.0-32.9, adult
CPT/HCPCS: 27658; 27691; 28308 ×2; 88304; C1713; C9290; J0690; J1100; J2250; J2405; J2704; J3010; J7120

== ENCOUNTER 2023-06-09 00:22 | Day surgery (SDC) | payer MEDICARE, OTHER, SELFPAY ==
[2023-06-02 15:34] VITALS: BMI 33.0
--- NOTE | 2023-06-02 15:48 | PC.NURSE ---
Report to the Outpatient Waiting Room, entrance under the green pavilion located off [facility], at time __0930 on date __06/09/23 . Planned Procedure Time: __1130 . Time changes happen often and if your time is changed the preop area will call you the afternoon before. - You and your visitor will be asked to self-screen and do not enter if you have any COVID symptoms. - A mask is optional within the hospital at this time. Patients may have clear liquids (water, carbonated beverages, clear teas, apple juice) until 3 hours prior to surgery with a maximum of 20 ounces. - No food from midnight until time of surgery - Infants may have breast milk until 4 hours before surgery, infant formula 6 hours prior to surgery. - Children will be allowed to drink immediately following surgery. If applicable, please bring a bottle or sippy cup to assist with drinking. Juice, water, soda, and popsicles are readily available. For infants on formula, please bring formula the day of surgery. Pacifiers are allowed. Take the following medications with a SIP of water the morning of surgery: ____CARVEDILOL, & TYLENOL IF NEEDED DO NOT STOP ANY OF YOUR OTHER PRESCRIPTION MEDICATIONS PRIOR TO SURGERY ?EXCEPT THE FOLLOWING Medications to discontinue per DR. WELCH - ____ASPIRIN 7 DAYS PRIOR Date to take last dose__06/01/23 - CONFIRMED WITH PT Please no make-up, nail canadian, hairspray, perfume, deodorant, or body powder the day of surgery. No jewelry (including any body piercings) or valuables the day of surgery, leave them at home. Please take a shower or bath the night before, or the morning of, surgery with an antibacterial soap. Wear comfortable, loose fitting clothing. Children are encouraged to wear pajamas. - Jewelry must be removed prior to entering the operating room. Rings and piercings that are not removed may be cut off. - The hospital will not accept responsibility for valuables. - Please leave all valuables, including medications, at home the day of surgery. If you are going home after surgery, a licensed flag car driver must drive you home. - NO public transportation without another adult if you receive anesthesia. - We recommend that an adult stay with you for 24 hours following discharge. - We also recommend that you do not drive, make important decision, drink alcoholic beverages, or take any drugs that were not prescribed by your health care provider for at least 24 hours after your discharge time. For Pediatric surgeries, we recommend two adults accompany the child home. Follow any additional instructions given to you from your surgeon. If you or anyone in your household have experienced Covid symptoms in the past week, please notify your surgeon or the nurse liaison at the phone number below for possible testing. Telephone instructions given to ___PT and asked if any additional questions and then verbalized understanding. Patient advised to call surgeon office or pre surgery nurse liaison [phone] if any additional questions.
[2023-06-09] VITALS (8 sets, daily range): BP systolic 109–136; BP diastolic 68–91; PULSE 66–74; RESP 14–21; TEMP 36.2–37.3; O2SAT 97–100
--- NOTE | ~2023-06-09 | XR_ITS ---
EXAMINATION: XR surgery orthopedic INDICATION: Left foot arthrodesis TECHNIQUE: Two intraoperative fluoroscopic images are submitted for review. Total fluoroscopic time w as 20 seconds. COMPARISON: None available FINDINGS: Fluoroscopic images demonstrate plate and screw fusion across the first metatarsophalangeal joint. There are also orthopedic device traversing the second and third toes into the metatarsals. P lease refer to procedure note for full details. IMPRESSION: 1. Please refer to procedure note for full details. Reviewed, dictated and finalized at location F.
--- NOTE | 2023-06-09 07:14 | WPDHPUPDATE1 ---
History and Physical Update Update Date/Time: 06/09/23 07:14 History and Physical has been reviewed, including an updated exam of the patient. There are NO changes in the patient's condition. Risks, benefits, and alternatives have been discussed and questions answered. Patient agrees to proceed with procedure.
[2023-06-09] MEDS: LACTATED RINGERS 1,000 ML 30 ML IV CONT ×2 (09:50→12:35)
--- NOTE | 2023-06-09 09:51 | WPDANESPNB ---
Anes - Peripheral Nerve Block Date/Time: 06/09/23 09:51 I have discussed with the patient/family/POA the placement of a peripheral nerve block for post-operative pain management, including associated risks, benefits, complications, and side effects. Alternative methods of post-operative analgesia were detailed. Questions were solicited and answers provided to the satisfaction of the patient/family/POA. Time-Out: A pre-procedural Time-Out was completed immediately before starting the procedure and confirmed: Patient Identification, Site, Procedure, Patient Position and the Availability of Requisite Equipment. Clinical Indications: Acute post-operative pain management requested by the operative surgeon. Nerve Block Insertion Note Anes-nerve block: posterior fossa sciatic left and adductor canal left Patient position: supine (for adductor canal) and other (right lateral for popliteal) Skin prep: chlorhexidine Needle: 22 gauge, stimulating, insulated echogenic needle. Needle length: 80 mm Technique: nerve stimulation lost at (mA) (for popliteal lost at 0.2) and ultrasound Injectate: bupivacaine 0.5% with epi 5 mcg/ml (20 mL for popliteal, 10 mL for adductor canal (no epi)) Observations: tolerated well Complications: none Procedure start time:: 1023 Procedure end time:: 1027
--- NOTE | 2023-06-09 09:51 | WPDANESEPPF ---
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 Patient Data Age: 68 Gender: F Height: 1.7 m Weight: 95.9 kg Allergies Allergy/AdvReac Type Severity Reaction Status Date / Time Sulfa (Sulfonamide Allergy Unknown Hives Verified 06/09/23 09:44 Antibiotics) tetracycline Allergy Unknown Hives Verified 06/09/23 09:44 Home Medications Medication Instructions Recorded Confirmed Type aspirin 325 mg tablet 325 mg PO DAILY 08/21/19 06/02/23 History magnesium oxide 400 mg PO DAILY 08/21/19 06/09/23 History prednisolone acetate 1 % eye 1 drop ophthalmic (eye) HS 08/21/19 06/09/23 History drops,suspension acetaminophen 650 mg tablet 650 mg PO Q6H PRN Pain 03/30/21 06/09/23 History diclofenac sodium 1 % topical gel 2 g topical PRN PRN Pain #300 grams 06/03/22 06/02/23 Rx (Voltaren Arthritis Pain) carvedilol 6.25 mg tablet 6.25 mg PO Q12H #180 tabs 02/21/23 06/09/23 Rx Patient hx anesthesia problems: none Family hx anesthesia problems: none Results Review: All pre-operative results and documents have been reviewed as part of the pre-operative evaluation. [facility] Past Medical History Medical History Abnormal fasting glucose Glucose 95 with hemoglobin A1c 5.2 on 02/17/2022. Glucose 97 with hemoglobin A1c 5.2 on 04/05/2023. Adult BMI 30.0-30.9 kg/sq m Arthritis of carpometacarpal (CMC) joint of both thumbs At low risk for fall BMI 29.0-29.9,adult BMI 31.0-31.9,adult BMI 33.0-33.9,adult Breast cancer screening by mammogram Mammogram negative on 07/01/2021 Chronic anxiety Chronic depression Chronic low back pain without sciatica Chronic pain of both thumbs Colon cancer screening normal colonoscopy with diverticula on 04/09/2021, recheck in 10 years Essential (primary) hypertension Fuchs' corneal dystrophy treated with corneal transplant 2018 Hypersomnia home sleep study ordered by public safety director on 09/02/2021 with no evidence of sleep apnea Hypertension Mixed hyperlipidemia total cholesterol 217, triglycerides 86, HDL excellent at 75, LDL 123 02/17/2022. total cholesterol 182, HDL 65, triglycerides 70, LDL 101 with ratio 2.8 on 04/05/2023. Obesity (BMI 30.0-34.9) Osteoarthritis involving multiple joints on both sides of body Overweight (BMI 25.0-29.9) Pain in left hand Pain in right hand Paroxysmal atrial fibrillation History of atrial fibrillation currently asymptomatic. She sees the public safety director every 6 months. echocardiogram 08/27/2021 with ejection fraction 65% with trace mitral regurgitation and trace tricuspid regurgitation Uterine prolapse Webbing of toes Welcome to Medicare preventive visit (~2006) Surgical History Surgical History H/O: hysterectomy History of heart surgery Family History Family History Mother Diabetes mellitus, Onset Age: 81 Family history of cardiovascular disease Cerebrovascular accident, Onset Age: 81 Family history of chronic obstructive pulmonary disease Family history of atrial fibrillation Father Family history of suicide, Onset Age: 30 Grandparent Cerebrovascular accident, Onset Age: 72 Social History Social History Smoking packs per day: 2 Smoking cigarettes per day: 40.0 Years smoked: 15 Smoking pack-years: 30.00 Smoking status: Former smoker Tobacco type: cigarettes Second hand tobacco smoke exposure: No Smoking end date: 09/25/09 Alcohol int
[2023-06-09] MEDS: LIDOCAINE HCL 2% LOCAL INJ 20 ML VIAL 10 ML INFILTRATE (11:06)
--- NOTE | 2023-06-09 12:53 | W.PM.PROC2 ---
Procedure Note - Detailed Date of Procedure 06/09/23 Pre-op Diagnosis 1. 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 Arthrodesis of the first metatarsal phalangeal joint left foot 2. Hammertoe repair with proximal interphalangeal joint arthrodesis of the second and third digits left foot 3. 2nd and 3rd metatarsal head resection left foot Surgeon Jermaine Emery JR, ASHTYN Anesthesia General and Regional Indications Painful left forefoot with dislocated 2nd and 3rd digits Description of Procedure Description of Procedure PROCEDURE IN DETAIL:? Under mild sedation, the patient was brought into the operating room, placed on the operating table in supine position.? A pneumatic ankle tourniquet was placed about the patient's ipsilateral ankle.? Following general anesthesia and a popliteal fossa block. I performed a Núñez block proximal to the first through third metatarsals with 10 cc's of 2% Lidocaine and 0.5% Marcaine plain in a one to one mix. Next, the foot was? scrubbed, prepped, and draped in the usual aseptic manner.? An Esmarch bandage was then used to exsanguinate the patient's? foot and the pneumatic ankle tourniquet was then inflated. ? Surgery began in the following manner:? Attention was directed to the dorsal medial aspect of the 1st metatarsophalangeal joint where there was a ?hallux valgus deformity noted with a prominent first metatarsal phalangeal joint dorsal medially.? The incision was made starting along the central shaft of the 1st metatarsal and extending just proximal to the interphalangeal joint of the? hallux.? The incision was continued deep down through the subcutaneous tissues using sharp and blunt dissection.? All bleeders were cauterized as necessary.? At this point, the dissection was continued down to the level of the periosteum and capsular structures overlying the 1st metatarsophalangeal joint.? A full length periosteum and capsular incision was made just medial to the extensor hallucis longus tendon.? The periosteum and capsular structures were freed from the base of the proximal phalanx as well as the distal 1st metatarsal.? At this point, the 1st metatarsophalangeal joint was identified.? There was loss of articular cartilage to the head of the 1st metatarsal, mostly medially.? Utilizing a sagittal bone saw, the hypertrophied 1st metatarsal was resected dorsally, medially, and laterally.? A power bur was used to make sure that there were no rough edges and also to further debride the hypertrophic 1st metatarsal.? Next, a rongeur was used to resect the hypertrophic base of the proximal phalanx.? At this point, the reamer system for the Qwilr system was used to denude the degenerative cartilage from the head of the 1st metatarsal as well as the base of the proximal phalanx.? The cartilage and subchondral bone were fully debrided utilizing the reamer system until healthy bleeding bone was noted. I flushed the surgery site with copious amounts of sterile saline.? Next, a 2-0 drill bit was used to further fenestrate the head of the 1st metatarsal as well as the base of the proximal phalanx in order to promote fusion across the 1st metatarsophalangeal joint.? Next, a 0.045 inch K-wire was driven from the medial aspect of the base of the proximal phalanx into the head of the 1st metatarsal in order to serve as temporary fixation.? A large steel plate was used to make sure that the hallux was in a rectus position both in the sagittal plane as well as the frontal and transverse plane.? Excellent position of the hallux was noted.? Next, a CrossCHECK plate was placed atop the 1st metatarsophalangeal joint held in position with [place] wires.? Utilizing standard principles and techniques, the 2 distal drill holes were drilled and two? 2.7 mm fully-threaded locking screws were driven from dorsal to plantar holding the distal aspect of th
[2023-06-09] MEDS: fentaNYL CITRATE INJ (*CRX) 100 MCG/2 ML VIAL 25 MCG IV PUSH ×3 (13:22→13:29)
[2023-06-09] MEDS: oxyCODONE HCL (*CRX) 5 MG TAB IR PO (14:00)
== END 2023-06-09 14:41 | disposition home or self-care (01) ==
PROVIDERS: PCP Family Medicine; Visit Provider Podiatrist Foot & Ankle Surgery
PROC: (CPT 28750; principal; 2023-06-09 11:30)
PROC: (CPT 28104; 2023-06-09 11:30)
DX: M06.872 Other specified rheumatoid arthritis, left ankle and foot (principal); M20.42 Other hammer toe(s) (acquired), left foot; S93.105A Unspecified dislocation of left toe(s), initial encounter; X58.XXXA Exposure to other specified factors, initial encounter; G89.18 Other acute postprocedural pain; I10 Essential (primary) hypertension; E78.2 Mixed hyperlipidemia; I48.0 Paroxysmal atrial fibrillation; F41.9 Anxiety disorder, unspecified; F32.A Depression, unspecified; Z79.82 Long term (current) use of aspirin; Z87.891 Personal history of nicotine dependence; E66.9 Obesity, unspecified; Z68.31 Body mass index [BMI] 31.0-31.9, adult
CPT/HCPCS: 28750; 28285 ×2; 28112 ×2; 64447; 64445; 99199; A9270; C1713; J1100; J2250; J2405; J2704; J3010; J7120

== ENCOUNTER 2024-05-13 14:41 | Outpatient (CLI) | payer MEDICARE, OTHER, SELFPAY ==
--- NOTE | ~2024-05-13 | XR_ITS ---
EXAM: XR hand LT min 3V, XR hand RT min 3V DATE: 05/13/2024 14:56 HISTORY: M18.9 - Osteoarthritis of first carpometacarpal joint, un... . COMPARISON: 05/11/2023, images only. FINDINGS: Normal mineralization. No fracture or dislocation. No lytic or blastic lesion. Degenerativ e change at the bilateral first CMC joints, slightly more pronounced on the left. No erosion or perio steal change. Soft tissues within normal limits. IMPRESSION: Mild bilateral first CMC joint arthritis, slightly worse on the left. Reviewed, dictated and finalized at location K. IMPRESSION: Mild bilateral first CMC joint arthritis, slightly worse on the lef t.
== END 2024-05-13 14:42 | disposition home or self-care (01) ==
LOC: ANHIMG 14:45
PROVIDERS: PCP Family Medicine; Visit Provider Plastic Surgery
DX: M19.041 Primary osteoarthritis, right hand (principal); M19.042 Primary osteoarthritis, left hand
CPT/HCPCS: 73130

== ENCOUNTER 2025-01-02 07:45 | Outpatient (CLI) | payer MEDICARE, OTHER, SELFPAY ==
--- NOTE | ~2025-01-02 | MM_ITS ---
EXAMINATION: MM screening bryn BI w no HISTORY: Screening TECHNIQUE: Craniocaudal and mediolateral oblique 3-D tomosynthesis images were obtained and synthetic 2-D images were generated. CAD analysis was submitted and interpreted. COMPARISON: No prior mammogram is available for comparison at this institution. BREAST PARENCHYMAL COMPOSITION: Not dense: There are scattered areas of fibroglandular density. FINDINGS: There is a focal asymmetry in the upper outer quadrant of the right breast, middle third. T here is no mammographic evidence for malignancy in the left breast IMPRESSION: 1. Focal right breast asymmetry. 2. Recommend comparison to previous outside mammograms. BI-RADS Category 0: Incomplete: Needs additional imaging evaluation. Reviewed, dictated and finalized at location A.
--- OUTSIDE RECORDS SUMMARY | 2025-01-02 07:50 | XMS_ITS | CONTINUITY OF CARE DOCUMENT ---
Author Name troy simmons Address Unknown Organization [facility] Address [address] [address] [place] [address] Phone [phone] Care Team Providers Care Corrosion Engineer Name Role Phone Stephon ARRIAZA, aVnessa Unavailable KIAN HARGROVE MD Unavailable KIAN HARGROVE MD Unavailable [phone] PROBLEMS Condition Status Date Provider Notes SVT active Vanessa Szymanski MD Family History of CVA or Stroke: completed - T elenita Szymanski MD Atrial fib paroxysmal sleep study negative in 2020 active Vanessa Szymanski MD Chest pain- apical isch on stresstest , nl cors on Cath 10/2018 active Vanessa Szymanski MD Palpitations active Vanessa Szymanski MD Cardiology examination completed 9 - Vanessa Szymanski MD Hyperlipidemia active Vanessa Szymanski MD ENCOUNTERS Date Type Provider Location Encounter Diag nosis - In-person encounter Office Visit Vanessa Szymanski MD [facility] - In-person encounter Office Visit Vanessa Szymanski MD [facility] Hyperlipidemia - In-person encounter Office Visit Vanessa Szymanski MD [facility] - In-person encounter Office Visit Vanessa Szymanski MD [facility] Atrial fib paroxysmal sleep study negative in 2020 - In-person encounter Office Visit Vanessa Szymanski MD [facility] Cardiology examination - In-person encounter Office Visit Vanessa Szymanski MD [facility] - In-person encounter Office Visit Vanessa Szymanski MD [facility] - In-person encounter Office Visit Vanessa Szymanski MD [facility] Family History of CVA or Stroke: - In-person encounter Office Visit Vanessa Szymanski MD [facility] - In-person encounter Office Visit Vanessa Szymanski MD [facility] - In-person encounter Office Visit Vanessa Szymanski MD [facility] Atrial fib paroxysmal sleep study negative in hes pain- apical isch on stresstest , nl cors on Cath 10/2018Palpitations VITAL SIGNS Date Observation Value Provider Body Mass Index (Ratio) 34.27 kg/m2 Thad Szymanski MD blood pressure, diastolic 78 mm[Hg] Am henok Ventimiglia [facility] blood pressure, systolic 112 mm[Hg] Metamora nda Ventimiglia [facility] respiratory rate E&M 14 /min Rachana Ventimiglia [facility] pulse rate 93 /min Rachana Ventimig glen [facility] oxygen saturation, oximetry 96 % Rachana Ventimiglia RADIOLOGY CT TECHNOLOGIST weight E&M 215.6 [lb_av] Rachana Ventimi glia [facility] Body Mass Index (Ratio) 34.97 kg/m2 Thad Szymanski MD blood pressure, cuff size regular Gita Jeffery blood pressure, diastolic 82 mm[Hg] Gita Jeffery blood pressure, systolic 120 mm[Hg] Ebony Jeffery oxygen saturation, oximetry 97 % Iza Jeffery respiratory rate E&M 14 /min Iza Jeffery pulse rate 82 /min Iza Jeffery weight E&M 220 [lb_av] Iza Jeffery height E&M 66.5 [in_i] Iza Jeffery Body Mass Index (Ratio) 34.97 kg/m2 Thad Szymanski MD blood pressure, cuff size regular [facility] blood pressure, diastolic 87 mm[Hg] Ja rret blood pressure, systolic 123 mm[Hg] Jar ret pulse rate 79 /min Aung respiratory rate E&M 16 /min Aung oxygen saturation, oximetry 94 % Aung weight E&M 220 [lb_av] Aung height E&M 66.5 [in_i] Aung y Body Mass Index (Ratio) 34.18 kg/m2 Thad Szymanski MD blood pressure, diastolic 84 mm[Hg] Gaye nkLog blood pressure, systolic 131 mm[Hg] Hannah kLog blood pressure, cuff size regular [facility] blood pressure, diastolic 84 mm[Hg] rr blood pressure, systolic 131 mm[Hg] Jar ret pulse rate 65 /min Aung respiratory rate E&M 12 /min Aung oxygen saturation, oximetry 96 % weight E&M 215 [lb_av] Aung height E&M 66.5 [in_i] Aung y Body Mass Index (Ratio) 34.34 kg/m2 Thad Szymanski MD blood pressure, cuff size large Ri bebo Haq blood pressure, diastolic 87 mm[Hg] Ri bebo Haq blood pressure, systolic 126 mm[Hg] Richar loir Haq oxygen saturation, oximetry 97 % Massiel Haq respiratory rate E&M 16 /min Jelly Haq pulse rate 73 /min Massiel aguilar weight E&M 216 [lb_av] Massiel aguilar height E&M 66.5 [in_i] Massiel aguilar Body Mass Index (Ratio) 34.18 kg/m2 Thad Szymanski MD blood pressure, cuff size large Kena lagunas [place] blood pressure, diastolic 72 mm[Hg] Kena lagunas [place] blood pressure, systolic 130 mm[Hg] [facility] lori [place] oxygen saturation, oximetry 98 % Judy [place] respiratory rate E&M 16 /min Hope thacker [place] pulse rate 103 /min Judy omalley weight E&M 215 [lb_av] Judy omalley height E&M 66.5 [in_i] Judy omalley Body Mass Index (Ratio) 31.95 kg/m2 Thad Szymanski MD blood pressure, cuff size large Tr yolena Sanches blood pressure, diastolic 98 mm[Hg] Tr ynett Myron blood pressure, systolic 158 mm[Hg] Try olena Sanches oxygen saturation, oximetry 97 % Trynett Sanches respiratory rate E&M 18 /min Trynett Sanches pulse rate 82 /min Trynett Sanches weight E&M 201 [lb_av] Trynett Sanches height E&M 66.5 [in_i] Trynett Sanches Body Mass Index (Ratio) 32.43 kg/m2 Thad Szymanski MD blood pressure, cuff size large Tr cleo Sanches blood pressure, diastolic 88 mm[Hg] Tr yolena Sanches blood pressure, systolic 142 mm[Hg] Try bridgett Sanches oxygen saturation, oximetry 95 % Tryolena Sanches respiratory rate E&M 16 /min Trynett Sanches pulse rate 96 /min Trynett Sanches weight E&M 204 [lb_av] Trynett Sanches height E&M 66.5 [in_i] Trynett Sanches Body Mass Index (Ratio) 29.41 kg/m2 Thad Szymanski MD blood pressure, resting No Kill een [place] blood pressure, diastolic 80 mm[Hg] [facility], systolic 110 mm[Hg] Kil stephenie [place] oxygen saturation, oximetry 98 % [facility] rate E&M 16 /min Luis Lobo pulse rate 64 /min Angier Lobo weight E&M 185 [lb_av] Angier Lobo height E&M 66.5 [in_i] Luis Lobo Body Mass Index (Ratio) 29.09 kg/m2 Thad Szymanski MD blood pressure, cuff size regular Kr isty [place] blood pressure, diastolic 70 mm[Hg] Kr isty Vitor blood pressure, systolic 124 mm[Hg] Kri stshalini Vitor oxygen saturation, oximetry 98 % Cleo [place] pulse rate 72 /min Cleo Vitor respiratory rate E&M 17 /min Cleo Vitor weight E&M 183 [lb_av] Cleo Vitor height E&M 66.5 [in_i] Cleo [place] Body Mass Index (Ratio) 28.14 kg/m2 hTad Szymanski MD blood pressure, diastolic 100 mm[Hg] Da annika [place] blood pressure, systolic 168 mm[Hg] Dac ia Willi oxygen saturation, oximetry 98 % Namita Willi respiratory rate E&M 16 /min Namita V oss pulse rate 83 /min Namita Willi weight E&M 177 [lb_av] Namita [place] height E&M 66.5 [in_i] [facility] ALLERGIES Allergy Name Onset Date Reaction Criticality Status METOPROLOL fatigue fatigue High Criticality act santana TETRACYCLINE High Criticality active SULFA High Criticality active HISTORY OF MEDICATION USE Medication Status Instructions Dates Provider Indications Com ments pravastatin 40 mg tablet active TAKE 1 TABLET BY MOUTH EVERY DAY Rachana DE LA GARZAP rosuvastatin 20 mg tablet completed Take 1 tablet by mouth once a day - Vanessa Szymanski MD flecainide 50 mg tablet completed Take 1/2 tablet by mouth twice a day - Rachana DE LA GARZAP Eliquis 5 mg tablet active Take 1 tablet by mouth twice a day Apple Mullen carvedilol 6.25 mg tablet active Take 1 tablet by mouth twice daily Rachana DE LA GARZAP duloxetine 30 mg capsule,delayed release(DR/EC) completed TAKE 1 CAPSULE BY MOUTH ONCE DAILY - Rachanahenok DE LA GARZAP magnesium oxide 400 mg (241.3 mg magnesium) tablet active 1 tablet by mouth once a day Vanessa Szymanski MD carvedilol 6.25 mg tablet completed Take 1 tablet by mouth twice a day - Negar Leon TOPROL XL 25 MG ORAL TABLET EXTENDED RELEASE 24 HOUR completed ONE TAB DAILY AT NIGHT - Shanika Littlejohn prednisolone acetate 1% drops,suspension active 1 drop into both eyes once a day [facility] aspirin 325 mg tablet completed Take 1 tablet by mouth once a day - Frank Mckeon SOCIAL HISTORY Date Observation Value Provider personal history of marijuana use no Rachana Ventimiglia RADIOLOGY CT TECHNOLOGIST drug use no Rachana Ventimig glen RADIOLOGY CT TECHNOLOGIST alcohol use no Rachana Ventimig glen RADIOLOGY CT TECHNOLOGIST smoking, year quit 2009 Rachana Ve ntimiglia RADIOLOGY CT TECHNOLOGIST number of years as a smoker 22 a Rachana Ventimiglia RADIOLOGY CT TECHNOLOGIST smoking history, tot al pack/day [address] TECHNOLOGIST cigarette use yes Rachana Ventimi glia RADIOLOGY CT TECHNOLOGIST smoking status Former smoker Rachana Venti miglia RADIOLOGY CT TECHNOLOGIST alcohol use no Frank Lyndseyzai smoking, year quit 2009 Frank Roxie gurmeetai number of years as a smoker 22 a Frank Mckeon smoking history, tot al pack/day 2 Frank Mckeon cigarette use yes Frank Deleoni smoking status Former smoker Frank Roxiebeckie i alcohol use no Frank Soloriozai smoking, year quit 2009 Frank Shane dzai number of years as a smoker 22 a Frank Roxiearmida smoking history, tot al pack/day 2 Frank Mckeon cigarette use yes Frank Mckeon smoking status Former smoker Frank Roxiebeckie i alcohol use no Frank Faustinmedzai smoking, year quit 2009 Frank Lynn dzai number of years as a smoker 22 a Frank Soloriozai smoking history, tot al pack/day 2 Frank Soloriozai cigarette use yes Frank Soloriozaanupama smoking status Former smoker Frank Roxiebeckie i social history E&M S moking History: Anastacia marie is a former smoker. Frank Lyndseyjuan a social history reviewed E&M revi ewed - no changes required Frank Deleonanupama smoking, year quit 2009 Massiel Haq number of years as a smoker 22 a Massiel Haq smoking history, tot al pack/day 2 Massiel Haq cigarette use yes Massiel vital smoking status Former smoker Massiel garcia social history E&M S moking History: Anastacia marie is a former smoker. Frank Deleonanupama smoking, year quit 2009 Judy Montalvo number of years as a smoker 22 a Judy Montalvo smoking history, tot al pack/day 2 Judy Montalvo cigarette use yes Judy Sainz palomo smoking status Former smoker Judy mcnair social history reviewed E&M revi ewed - no changes required Vanessa Szymanski MD social history E&M S moking History: Anastacia marie is a former smoker. Negar Leon social history reviewed E&M revi ewed - no changes required Negar Leon smoking, year quit 2009 Davey vincentards cigarette use yes Trynett Edward s smoking status Former smoker Trynett Edwa rds social history reviewed E&M revi ewed - no changes required Frank Mckeon social history E&M S moking History: Anastacia marie is a former smoker. Vanessa Szymanski MD social history reviewed E&M revi ewed - no changes required Vanessa Szymanski MD alcohol use no Angier Lobo smoking, year quit 2009 Angier I ngram number of years as a smoker 22 a Angier Lobo smoking history, tot al pack/day 2 Luis Lobo cigarette use yes Luis Lobo smoking status Former smoker Luis Ingr am social history reviewed E&M revi ewed - no changes required Vanessa Szymanski MD social history E&M S moking History: Anastacia marie is a former smoker. Vanessa Szymanski MD alcohol use no Cleo Vitor smoking, year quit 2009 Cleo Bu sby number of years as a smoker 22 a Cleo [place] smoking history, tot al pack/day 2 Cleo [place] cigarette use yes Cleo Vitor smoking status Former smoker Cleo [place] social history reviewed E&M revi ewed - no changes required Vanessa Szymanski MD social history E&M S moking History: Anastacia marie is a former smoker. Vanessa Szymanski MD number of grandchildren Vanessa Szymanski MD T elenita Szymanski MD alcohol use no Namita Willi number of years as a smoker 22 a Namita Willi smoking history, tot al pack/day 2 Namita Willi smoking, year quit 2009 Namita Ravi s cigarette use yes Namita Willi smoking status Former smoker Namita Willi FAMILY HISTORY Family Member Condition Mother Family History of CV A or Stroke: INSURANCE PROVIDERS Payer name Policy type / Coverage type [place] red republican ID [place] MED[employer] Medicare [id number] DANIELA SUAREZ [id number] ADVANCE DIRECTIVES Name Date DISCUSSED - NO DECISION MADE TREATMENT PLAN Date Name Performer [id number],BFrank i [id number],BFrank i [id number],BFrank i [id number],SFrank i [id number],BFrank i [id number],S, Frank Faustinmedza i [id number],B, Negar Singh obsmeyer [id number],B, Negar Singh obsmeyer [id number],B, Negar Singh obsmeyer [id number],S, Frank Faustinmedza i [id number],S, Frank Faustinmedza i [id number],S, Frank Faustinmedza i Cardiology:In NSR on exam today W e plan to stop flecainide as on only 25 mg BID W ill remain on Eliquis for AC T he following medications were removed from the medication list: Flecainide 50 Mg Tablet (Flecainide) ..... Take 1/2 tablet by mouth twice a day Her updated medication list for this problem includes: Carvedilol 6.25 Mg Tablet (Carvedilol) ..... Take 1 tablet by mouth twice daily This visit has been a part of the consistent, comprehensive, and ongoing management of the chronic medical condition(s) listed above for the patient. Vanessa Szymanski MD Cardiology:no furthe r episodes W ill remove flecainide and fu in 3 mos or sooner if needed. T he following medications were removed from the medication list: Flecainide 50 Mg Tablet (Flecainide) ..... Take 1/2 tablet by mouth twice a day Her updated medication list for this problem includes: Carvedilol 6.25 Mg Tablet (Carvedilol) ..... Take 1 tablet by mouth twice daily Rachana Torres [facility] Cardiology:LDL 89 do wn from 140 on recent labs c ontinue pravastatin H er updated medication list for this problem includes: Pravastatin 40 Mg Tablet (Pravastatin) ..... Take 1 tablet by mouth every day Rachana Torres [facility] Cardiology:In NSR on exam today W e plan to stop flecainide as on only 25 mg BID W ill remain on Eliquis for AC T he following medications were removed from the medication list: Flecainide 50 Mg Tablet (Flecainide) ..... Take 1/2 tablet by mouth twice a day Her updated medication list for this problem includes: Carvedilol 6.25 Mg Tablet (Carvedilol) ..... Take 1 tablet by mouth twice daily Rachana VELEZ Cardiology Vanessa Szymanski MD Cardiology Vanessa Szymanski MD Cardiology Vanessa Szymanski MD Cardiology:This visi t has been a part of the consistent, comprehensive, and ongoing management of the chronic medical condition(s) listed above for the patient. Vanessa Szymanski MD Cardiology Vanessa Szymanski MD Cardiology Vanessa Szymanski MD Cardiology: H er updated medication list for this problem includes: Flecainide 50 Mg Tablet (Flecainide) ..... Take 1 tablet by mouth twice a day Carvedilol 6.25 Mg Tablet (Carvedilol) Vanessa Szymanski MD Cardiology: H er updated medication list for this problem includes: Flecainide 50 Mg Tablet (Flecainide) ..... Take 1 tablet by mouth twice a day Carvedilol 6.25 Mg Tablet (Carvedilol) Vanessa Szymanski MD Telehealth: Her updated medication list for this problem includes: Flecainide 50 Mg Tablet (Flecainide) ..... Take 1 tablet by mouth twice a day Carvedilol 6.25 Mg Tablet (Carvedilol) Frank Mckeon Telehealth: Her updated medication list for this problem includes: Flecainide 50 Mg Tablet (Flecainide) ..... Take 1 tablet by mouth twice a day Carvedilol 6.25 Mg Tablet (Carvedilol) Frank Mckeon Telehealth: H er updated medication list for this problem includes: Flecainide 50 Mg Tablet (Flecainide) ..... Take 1 tablet by mouth twice a day Carvedilol 6.25 Mg Tablet (Carvedilol) [facility] Negar [place] Cardiology Negar [place] Cardiology Negar [place] [facility] Frank medza Cardiology Frank medza Cardiology Vanessa Szymanski MD Cardiology Vanessa Szymanski MD Cardiology Vansesa Szymanski MD Cardiology Vanessa Szymanski MD Cardiology Vanessa Szymanski MD Cardiology New Patient Vanessa granados MD Cardiology New Patient Vanessa granados MD Cardiology New Patient Vanessa granados MD Cardiology New Patient Vanessa granados MD Date Name Monitor - Telemetry (Mobile Cardiac) Sleep Study Home Holter Monitor 48 hr Complete Echo Mobile Cardiac Tele Stress Exercise Card iolite Complete Echo Mobile Cardiac Tele HISTORY OF PROCEDURES Procedure Date Procedure Name Provider Procedure Notes S tatus Complex e/m visit add on Vanessa Szymanski MD completed Complex e/m visit add on Vanessa Szymanski MD completed EKG Vanessa Szymanski MD completed EKG Vanessa Szymanski MD completed Holter, 24 or 48 Vanessa Szymanski MD com pleted EKG Vanessa Szymanski MD completed Holter, 24 or 48 Keyur Vu MD c ompleted Schedule Followup Vanessa Szymanski MD in 3 mo co mpleted Regadenoson, 4 units Vanessa Szymanski MD completed Cardiolite, 2 units Vanessa Szymanski MD completed SPECT Images Miriam Eagle MD compl eted Stress EKG Barrett Tillman MD completed Mobile Cardiac Telem etry - Tech Vanessa Szymanski MD completed Mobile Cardiac Telem etry - Prof Vanessa Szymanski MD completed Schedule Followup Vanessa Szymanski MD after testing completed EKG Vanessa Szymanski MD completed
== END 2025-01-02 07:46 | disposition home or self-care (01) ==
PROVIDERS: PCP Family Medicine; Visit Provider Family Medicine
DX: Z12.31 Encounter for screening mammogram for malignant neoplasm of breast (principal)
CPT/HCPCS: 77063; 77067